=== PATIENT | male | born 1975 | race Caucasian/White ===

== ENCOUNTER → 2018-06-10 | Outpatient (CLI) | payer BC | LOC: RAD 13:56 | DX: N50.9 Disorder of male genital organs, unspecified (principal) ==

== ENCOUNTER → 2024-06-15 | Outpatient (CLI) | payer BC ==
[~2024-06-15] MED LIST: Iohexol 300 - 100 ML VIAL IV ONE
[2024-06-15 12:22] LABS: CALCIUM 9.8 mg/dL (8.3-10.5)
== END ==
LOC: LAB 11:42
PROVIDERS: Family Medicine
DX: E11.9 Type 2 diabetes mellitus without complications (principal); R04.2 Hemoptysis
CPT/HCPCS: Q9967